=== PATIENT | female | born 1990 | race Caucasian/White ===

== ENCOUNTER 2016-04-17 08:38 | Outpatient (CLI) | payer OTHER | END 2016-04-17 08:39 | disposition home or self-care (01) | LOC: NC 08:38 | PROVIDERS: ATTEND Family Medicine | DX: O24.419 Gestational diabetes mellitus in pregnancy, unspecified control (principal); Z71.3 Dietary counseling and surveillance ==

== ENCOUNTER 2016-06-14 07:09 | Inpatient (IN) | payer OTHER ==
[2016-06-14] MEDS ORDERED: OXYTOCIN IN NS 500 ML IV ONE (07:20)
[2016-06-14] MEDS ORDERED: OXYTOCIN 10 UNITS/ML VIAL ONE (07:34)
[2016-06-14] MEDS ORDERED: IV START KIT ONE (07:34)
[2016-06-14] MEDS ORDERED: LACTATED RINGERS 1,000 ML ONE (07:34)
[2016-06-14] MEDS ORDERED: LIDOCAINE Viscous 2% 15 ML UDCUP ONE (07:35)
[2016-06-14] MEDS ORDERED: MINERAL OIL 25 ML BOT ONE (07:35)
[2016-06-14] MEDS ORDERED: LIDOCAINE 1% (PRES FREE) 30 ML VIAL ONE (07:35)
[2016-06-14] MEDS ORDERED: PUMP TUBING ONE (07:35)
[2016-06-14] MEDS: LACTATED RINGERS 1,000 ML IV SCH ×2 (08:05→18:24)
[2016-06-14] MEDS: OXYTOCIN IN NS 500 ML IV PRN ×8 (08:32→12:55)
--- NOTE | 2016-06-14 09:11 | PCMAN ---
OB Admission Note - History : 4 Term: 3 Livin EDC:: 06/19/16 Gestational Age (weeks): 39 Days (#/7): 2 Admit Cervical Dilation:: 2.5 Admit Cervical Effacement (%):: 70 Admit Station:: -3 Membrane Status: Intact Contractions: Yes Contraction Frequency:: occasional Heart Rate:: 130 Status:: category I EFW:: 7 pounds Summary of Course:: 25 yr old at 39 2/7 weeks with diet controlled GDM. Has been also followed by maternal- medicine due to knownw single kidney. Growth has been appropriate. IOL recommended which we are starting today. - Labs Blood Type: A (+) positive Rubella Status: Immune GBS Status: Negative Abnormal Labs: None - Physical Exam Psych/Mental Status: Mood/Affect Appropriate, Judgment/Insight Intact Neurological: Grossly Intact, Alert, Oriented x 4, Normal Gait, Normal Speech, Normal Reflexes, Cranial Nerves 3-12 Intact HEENT: Atraumatic, PERRLA, EOMI, Mucous membr. moist/pink Lungs: Clear to Auscultation Bilaterally, Normal Air Movement Cardiovascular: Regular Rate and Rhythm, Normal S1, Normal S2, No Murmur Abdomen: Normal Bowel Sounds Genitourinary: Normal Female Genitalia Rectal Exam: Deferred Extremities: Full ROM, Normal Cap Refill, Normal Pulses Skin: Normal Color, Warm, Dry - Problems (1) Gestational diabetes Status: Acute Code: O24.419Assessment/Plan: Diet controlled. 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 IOL today starting with Pitocin.
[2016-06-14 09:14] VITALS: BMI 29.9
[2016-06-14 10:22] LABS: HEMATOCRIT 36.7 % (37.0-47.0); HEMOGLOBIN 12.7 gm/l (12.0-16.0); MEAN CELL VOLUME 93.6 fl (81.0-99.0); MEAN CORPUSCULAR HEMOGLOBIN 32.4 pg (27.0-31.0); MEAN CORPUSCULAR HGB CONC 34.6 g/dl (33.0-37.0); RED CELL DISTRIBUTION WIDTH 13.2 % (11.5-14.5)
--- NOTE | 2016-06-14 13:08 | PDOC36 ---
Provider Note Subject: 25 yr old at 39 2/7 weeks having IOL for single kidney and GDM. Pitocin was begun per protocol this AM and pt is having CTXs q 2-4 minutes, mild. FHTs category I: 130-160's. Cx check: 3 cm/70%/-2, posterior but easily positioned anterior on exam. AROM clear fluid done (GBS negative). Titrate up on Pitocin per protocol as needed and await delivery.
[2016-06-14] MEDS ORDERED: EPIDURAL PUMP SET ONE (18:11)
[2016-06-14] MEDS ORDERED: FENTANYL/ROPIVACAINE EPIDURAL 250 ML EP ONE (18:12)
[2016-06-14] MEDS ORDERED: ONDANSETRON 4 MG/2ML 2 ML VIAL IV PRN (18:50)
[2016-06-14] MEDS ORDERED: NALBUPHINE HCL 20 MG/ML AMP IV PRN (18:50)
[2016-06-14] MEDS ORDERED: EPHEDRINE SULFATE 50 MG/ML 1ML VIAL IV PRN (18:50)
[2016-06-14] MEDS ORDERED: SODIUM CHLORIDE 0.9% 500 ML IV PRN (18:50)
[2016-06-14] MEDS ORDERED: FENTANYL/ROPIVACAINE EPIDURAL 250 ML EP SCH (18:50)
[2016-06-14] MEDS ORDERED: NALOXONE HCL 0.4 MG/ML VIAL IV PRN (18:50)
[2016-06-14] MEDS ORDERED: LACTATED RINGERS 1,000 ML IV SCH (18:50)
[2016-06-14] MEDS ORDERED: LACTATED RINGERS 500 ML IV PRN (18:50)
[2016-06-14] MEDS ORDERED: METOCLOPRAMIDE HCL 5 MG/ML 2ML VIAL IV PRN (18:50)
[2016-06-14] MEDS ORDERED: DIPHENHYDRAMINE HCL 50 MG/1 ML VIAL IV PRN (18:50)
[2016-06-14] MEDS ORDERED: EPIDURAL PROCEDURE TRAY ONE (18:56)
[2016-06-14] MEDS ORDERED: ROPIVACAINE 0.5% 30 ML VIAL ONE (18:56)
--- NOTE | 2016-06-14 20:46 | PCMDEL ---
Delivery Note - Labor 1st stage (hr/min):: 7 hr/ 3 min 2nd stage (hr/min):: 0 hr/ 29 min 3rd stage (hr/min):: 0 hr/ 8 min Total (hr/min):: 7 hr/ 40 min Pushed (hr/min):: 0 hr/ 20 min - Delivery Delivery (Date): 06/14/16 Delivery (Time): 20:23 Infant Gender: Male Presentation: Cephalic Position: OA Umbilical Cord: 3 Vessel Delayed Cord Clamping:: > 3 min 1 Minute Total: 9 5 Minute Total: 9 Placenta:: complete and spontaneous EBL:: 200 ml Perineum:: intact Anesthesia/Meds:: epidural Length ROM:: 7 hr 33 min Comments:: 25 yr old G4 now P4 at 39 2/7 weeks via IOL for GDM and single kidney. IOL achieved through Pitocin per protocol and AROM. Pt progressed to over intact perineum.
[2016-06-14] MEDS ORDERED: HYDROCODONE/ACETAMINOPHEN 5/325MG TABLET PO PRN (20:50)
[2016-06-14] MEDS ORDERED: DOCUSATE SODIUM 100 MG CAPSULE PO PRN (20:50)
[2016-06-14] MEDS ORDERED: LANOLIN 50 APPLIC/7G TUBE TP PRN (20:50)
[2016-06-14] MEDS ORDERED: BENZOCAINE/MENTHOL 60 APPLIC/BOT TP PRN (20:50)
[2016-06-14] MEDS ORDERED: IBUPROFEN 800 MG TABLET PO PRN (20:50)
[2016-06-14] MEDS ORDERED: OXYCODONE HCL 5 MG TABLET PO PRN (20:50)
[2016-06-15] MEDS ORDERED: LACTATED RINGERS 1,000 ML ONE (06:06)
[2016-06-15] MEDS ORDERED: LACTATED RINGERS 1,000 ML IV SCH (06:15)
[2016-06-15 06:25] LABS: HEMATOCRIT 36.8 % (37.0-47.0); HEMOGLOBIN 12.7 gm/l (12.0-16.0)
[2016-06-15] MEDS ORDERED: SPINAL PROCEDURAL TRAY 1 EACH ONE (06:52)
[2016-06-15] MEDS ORDERED: BUPIVACAINE 0.75% SPINAL AMPUL 2 ML ONE (06:52)
--- NOTE | 2016-06-15 07:42 | PDOC36 ---
Provider Note Subject: Tubal ligation H&P Note: 25yo , PPD#1, s/p vaginal delivery by Dr. Farr uncomplicated and delivery pt desires permanent sterilization by bilateral tubal ligation PMH: x 4, uncomplicated denies any medical problems PSH: negative Meds: PNV and iron Exam: Gen: NAD CV: RRR Pulm: CTAB Abd: soft, NT, fundus firm below umbilicus Ext: wnl a/p) 25yo , desires permanent sterilization BTL procedure discussed risk of regret, , and ectopic reviewed postoperative expectations reviewed for PP BTL with spinal anesthesia.
[2016-06-15] MEDS ORDERED: DOCUSATE SODIUM 100 MG CAPSULE PO PRN (09:37)
[2016-06-15] MEDS ORDERED: BENZOCAINE/MENTHOL 60 APPLIC/BOT TP PRN (09:37)
[2016-06-15] MEDS ORDERED: OXYCODONE/ACETAMINOPHEN 5/325 MG TABLET PO PRN (09:37)
[2016-06-15] MEDS ORDERED: LANOLIN 50 APPLIC/7G TUBE TP PRN (09:37)
--- NOTE | 2016-06-15 11:28 | OP ---
CHACHO TORREZ [id number] DATE OF OPERATION: June 15, 2016 PREOPERATIVE DIAGNOSES: 1. Status post normal vaginal delivery. day number one. 2. Desires permanent sterilization. OPERATION PERFORMED: Mini-laparotomy bilateral tubal ligation. SURGEON: Hussein Garcia M.D. ANESTHESIA: Spina. ESTIMATED BLOOD LOSS: 20 mL. COMPLICATIONS: None. FINDINGS: Operative findings include grossly normal fallopian tubes bilaterally. OPERATIVE COURSE: Patient was taken to the operating room and placed under spinal anesthesia. The patient's bladder was emptied with a straight catheter. She was placed in the supine position and prepped and draped in the sterile fashion and adequate anesthesia was confirmed. A 3 cm transverse incision was made at the sub-umbilicus and this was elevated with Allis clamps. This was continued down until the umbilical fascia was reached, and this was incised transversely to enter into the peritoneal cavity. An Regan retractor was then placed. Patient was then placed in Trendelenburg and the right tube was found and grasped with Mayo clamp and followed to its fimbriated end. A window was then made in the mesosalpinx, and the proximal-distal aspect of the isthmus was then tied with #2-0 silk suture. The middle segment was then excised and the open ends of the tube were then cauterized. Attention was then paid to the left tube where it was followed to its fimbriated end. The left tube was grasped with Mayo clamp and the window was then made in the mesosalpinx. The distal and proximal aspects of the isthmus were then tied with #2-0 silk suture and the middle segment was then excised. The open aspects of the tube were then cauterized, and there was good hemostasis observed. The right tube was then also examined and cauterized for hemostasis. The Regan retractor was then removed. There was an area of the fascia with bleeding and this was cauterized. The fascia was then closed with #0 Vicryl in continuous fashion. The umbilicus was then anchored to the fascia with #0 Vicryl suture. The skin was then closed with #3-0 Monocryl suture. The patient was then recovered from anesthesia and taken to the recovery room in stable condition.
[2016-06-15] MEDS: IBUPROFEN 800 MG TABLET PO PRN ×2 (11:42→18:12)
--- NOTE | 2016-06-15 14:48 | PDOC39B ---
Hospital Course: ADMIT DATE: 06/14/16 DISCHARGE DATE: 06/15/2016 ADMISSION DIAGNOSES: Induction of labor for gestational diabetes, single kidney PROCEDURES: Normal vaginal delivery, tubal ligation HISTORY OF PRESENT ILLNESS: 25 year old G4 T3 L3 at 39 weeks 2 days presenting for induction due to GDM and single kidney HOSPITAL COURSE: The patient progressed to normal vaginal delivery on date of admission. She had a tubal ligation the morning after delivery and is doing very well with self care and pain control 6 hours after BTL. By day of discharge the patient is ambulating, eating, voiding, and passing flatus without difficulty. Pain is controlled and lochia is appropriate. She is . - Physical Exam Vital Signs: Temp Pulse Resp BP Pulse Ox 98.1 F 64 16 110/62 06/15/16 07:15 06/15/16 07:15 06/15/16 07:15 06/15/16 07:15 General: Afebrile Psych/Mental Status: Mood/Affect Appropriate, Judgment/Insight Intact, Bonding Well Neurological: Grossly Intact, Oriented x 4, Normal Gait, Normal Speech, Normal Reflexes, Cranial Nerves 3-12 Intact HEENT: Atraumatic, PERRLA, EOMI, Mucous membr. moist/pink Lungs: Clear to Auscultation Bilaterally, Normal Air Movement Cardiovascular: Regular Rate and Rhythm, Normal S1, Normal S2 Breast: Nipples Intact Fundus: Firm, Below Umbilicus Abdomen: Normal Bowel Sounds Genitourinary: Normal Female Genitalia Lochia: Moderate Rectal Exam: Deferred Extremities: Full ROM, Normal Cap Refill, Normal Pulses Skin: Normal Color, Warm Wound: Dressing in Place ( from BTL), Dressing Clean/Dry/Intact - Discharge Diagnosis (1) Gestational diabetes Status: AcuteAssessment/Plan: Delivered. 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 - Discharge Plan Condition: Good Disposition: Home Additional Instructions: Discharge to home with baby about 8 pm today. Follow up with Dr. Farr 07-28 at 15:30 for 6 week check up. Medications as prescribed. Keep the wound dressing from tubal ligation in place until tomorrow. Then remove and replace with daily band-aid as needed until fully healed. Prescriptions: Docusate Sodium [COLACE 100 MG CAPSULE (SHF)] 100 mg PO DAILY PRN #30 PRN Reason: Comfort Ibuprofen [IBUPROFEN 800 MG TABLET (F)] 800 mg PO Q6H PRN #90 PRN Reason: Pain (Mild) Oxycodone HCl/Acetaminophen [PERCOCET 5/325 MG TABLET (F)] 1 - 2 tab PO Q4H PRN #30 PRN Reason: Pain (Moderate) Follow-Up: Madeline Farr MD [Primary Care Provider] - 07/28/16 3:30 pm (6 weeks check up)
[2016-06-15 20:13] VITALS: BP 123/71
--- NOTE | 2016-06-17 10:52 | SURGPATH ---
[facility] [address] [place] [id number] Patient Name: CHACHO TORREZ MR#: [id number] : 1990 Gender: F Specimen #: [id number] Collected: 06/14/2016 Received: 06/16/2016 Reported: 06/17/2016 Submitting Phys: CARMELLA JENSEN Copy To Phys: [facility] Clinical History / Pre-Operative Diagnosis: Specimen Source / Surgical Procedure Performed: Bilateral fallopian tube segments Interpretation: RIGHT AND LEFT FALLOPIAN TUBES, TUBAL LIGATION: -SEGMENTS OF FALLOPIAN TUBES PRESENT Electronically Signed Out Neel Gonzalez M.D. Gross Description: The specimen is received in formalin labeled with the patient's name and "right and left fallopian tubes segments". The specimen consists of two 1.2-1.8 cm non-fimbriated bean rubbery tubes. The longer left tube is marked with black ink for identification. Pediatric Critical Care Nurse submitted in one cassette. VINEET Kingston Microscopic Description: A slide contains unremarkable cross sections of both fallopian tubes. 1: 18241(1) Z30.2
== END 2016-06-15 20:15 | disposition home or self-care (01) | DRG 767 ==
LOC: FBC 07:09 → EDSTATUS 06-19 12:09
PROVIDERS: ADMIT Family Medicine; ATTEND Obstetrics & Gynecology
PROC: 10E0XZZ Delivery of Products of Conception, External Approach (ICD-10-PCS; principal; 2016-06-14)
PROC: 10907ZC Drainage of Amniotic Fluid, Therapeutic from Products of Conception, Via Natural or Artificial Opening (ICD-10-PCS; 2016-06-14)
PROC: 3E033VJ Introduction of Other Hormone into Peripheral Vein, Percutaneous Approach (ICD-10-PCS; 2016-06-14)
PROC: 0UL70ZZ Occlusion of Bilateral Fallopian Tubes, Open Approach (ICD-10-PCS; 2016-06-15)
DX: O35.8XX0 Maternal care for other (suspected) fetal abnormality and damage, not applicable or unspecified (principal); Z90.5 Acquired absence of kidney; O24.420 Gestational diabetes mellitus in childbirth, diet controlled; Z3A.39 39 weeks gestation of pregnancy; Z37.0 Single live birth; Z30.2 Encounter for sterilization